=== PATIENT | female | born 1985 | race Caucasian/White ===

== ENCOUNTER 2020-04-05 13:52 | Outpatient (REF) | payer OTHER, SELFPAY | END 2020-04-05 13:53 | disposition home or self-care (01) | LOC: HO.LAB 13:52 | PROVIDERS: Visit Provider Internal Medicine | DX: Z20.828 Contact with and (suspected) exposure to other viral communicable diseases (principal) | CPT/HCPCS: C9803; U0003 ==

== ENCOUNTER 2024-04-29 17:10 | Emergency (ER) | payer OTHER, SELFPAY ==
[2024-04-29 17:13] VITALS: BP 148/101; PULSE 93; RESP 26; TEMP 36.5; O2SAT 100; BMI 32.6
--- NOTE | 2024-04-29 17:15 | ED_ITS ---
HPI - General Adult General Chief complaint: Nausea/Vomiting/Diarrhea Stated complaint: ? preg/nauseau Time Seen by Provider: 04/29/24 17:23 Source: patient, RN notes reviewed and old records reviewed Mode of arrival: ambulatory History of Present Illness ED Provider: Muna Sheriff PA-C HPI narrative: 38-year-old female presenting to ED for hCG level check and complaints of nausea/vomiting x 1 week. States LMP is due in a few days, however was experiencing nausea/ vomiting and breast soreness, contacted her OBGYN and had hCG level drawn on Saturday, 2 days ago, and level was 10. States is due for repeat level tomorrow however nausea worsened to thus came to ED today. Denies abdominal pain, new or worsening back pain, vaginal bleeding, discharge, dysuria/hematuria Related Data Previous Rx's ?Medication ?Instructions ?Recorded ondansetron 4 mg disintegrating 4 mg PO Q8H PRN nausea and 04/29/24 tablet vomiting #10 tabs Allergies Allergy/AdvReac Type Severity Reaction Status Date / Time cyclobenzaprine Allergy Unknown UNKNOWN Verified 04/29/24 17:16 [From FLEXERIL] ethinyl estradiol Allergy Unknown UNKNOWN Verified 04/29/24 17:16 [From NECON 0.5/35 (21)] norethindrone Allergy Unknown UNKNOWN Verified 04/29/24 17:16 [From NECON 0.5/35 (21)] amitriptyline Allergy Vomiting Verified 04/29/24 17:16 UNKNOWN NSAID Allergy Unknown UNKNOWN Uncoded 04/29/24 17:16 Review of Systems 2 Review of Systems: Yes all other systems are reviewed and are negative Constitutional: Constitutional: Reports as per HPI [facility] Past Medical History Attestation statement: The following information was validated with the patient. Source: old records reviewed Social History Social History Advance Directives: No Advance Directives Information Provided: No Physical Exam ED Vital Signs: Vital Signs - 24 hr 04/29/24 17:13 04/29/24 18:27 Temperature 97.7 F 98.0 F Pulse Rate 93 89 Respiratory Rate 26 H 22 H Blood Pressure 148/101 H 144/91 H Pulse Oximetry 100 98 Oxygen Delivery Method Room Air Room Air BMI result Body Mass Index 32.6 Const General: cooperative, healthy appearing and no acute distress Orientation/consciousness: patient oriented x3 Limitations: no limitations HENMT Head: Yes normal to inspection and Yes atraumatic Ears: hearing grossly normal bilaterally General nose exam: Normal external nose present Face and sinus: Yes normal facial exam Eyes General: appearance normal, both eyes and all related structures EOM: EOMs intact bilaterally Neck Neck: Yes normal visual inspection and Yes no meningeal signs Resp Effort & Inspection: normal respiratory effort and no respiratory distress Auscultation: clear to auscultation bilaterally Cardio Rate: regular rate Heart sounds: S1 normal heart sound present and S2 normal heart sound present GI Inspection: Yes normal to inspection Palpation (GI): Soft to palpation, nontender, no guarding and not rigid General: Yes no CVA tenderness Back/Spine/Pelvis Back: no CVA tenderness Skin Rashes: no rashes Wounds: no wounds Neuro General: patient oriented x3, tone normal and no meningeal signs Cranial nerves: Yes CN's II-XII intact bilaterally Gait exam (Neuro): Normal gait present Extrem General: Yes normal to inspection Course Course Course Narrative: RME: 38 yold female presents to the ED for nauseaand believes she is . Patient denies any abdominal pain. llabs ordered. - UA negative. Urine negative - HCG level = 4 >> downtrending from patient's prior labs drawn on 04/27. Recommend patient have repeat hCG in 48 hours to ensure beta quant continues to down trend. Strict return precautions given including development of pain, bleeding, persistent nausea / vomiting, discharge, to return to the ED immediately. She needs to call her OBGYN tomorrow morning. Results discussed with patient including worrisome signs and symptoms and strict return precautions, and when to return to the emergency department. They verbalized understanding and feel safe for discharge at this time. Medications Administered Discontinued Medications Generic Name Dose Route Start Last Admin Trade Name Freq PRN Reason Stop Dose Admin Ondansetron HCl 4 mg 04/29/24 18:13 04/29/24 18:24 Ondansetron Odt 4 Mg Tab.Rapdis TRANSLINGU 04/29/24 18:14 4 mg ONCE ONE Administration Medical Decision Making Medical Decision Making MDM Narrative: 38-year-old female presenting to ED for hCG level check and complaints of nausea/vomiting x 1 week. on exam hypertensive, tachypneic, talking quickly, anxious, abdomen soft and nontender. Concern for early vs gastroenteritis/colitis. Patient without abdominal pain, vaginal bleeding or discharge. low suspicion for ectopic at this time without pain. Unlikely appendicitis /diverticulitis. Rule out UTI. Suspicion for threatened / missed vs possible lab abnormality/false positive. Plan: Labs, UA, hCG, antiemetic, re-evaluate No need for ultrasound at this time Please refer to course for remaining clinical decision making, interpretation of labs/imaging results, and discussions with consultants and/or family members. Differential Diagnosis Differential Diagnoses: The differential diagnosis associated with the presentation includes As above Admission/Observation Consideration of admission/observation: Escalation of care including admission/observation considered Lab Data MDM Lab Attestation statement: I reviewed the patient's lab results. 04/29/24 17:23 04/29/24 17:23 Labs: Lab Results 04/29/24 04/29/24 Range/Units 17:23 17:28 WBC 9.2 (4.8-10.8) X10*3/uL RBC 4.86 (4.20-5.50) X10*6/uL Hgb 14.4 (12.0-16.0) g/dl Hct 42.8 (37.0-47.0) % MCV 88.1 (80.0-98.0) fL MCH 29.6 (27.0-33.0) pg MCHC 33.6 (31.0-35.0) g/dl RDW 13.4 (11.0-16.0) % Plt Count 287 (160-400) X10*3/uL MPV 10.3 (9.4-12.3) fL Immature Gran % (Auto) 0.2 (0.0-0.4) % Neut % (Auto) 62.7 (45-73) % Lymph % (Auto) 29.2 (20-40) % [place] % (Auto) 6.4 (2-11) % Eos % (Auto) 1.2 (0-4) % Baso % (Auto) 0.3 (0-2) % Lymph # (Auto) 2.7 (1.2-4.9) X10*3/uL [place] # (Auto) 0.6 (0.1-1.2) X10*3/uL Eos # (Auto) 0.1 (0.0-0.4) X10*3/uL Baso # (Auto) 0.0 (0.0-0.2) X10*3/uL Abs Immat Gran (auto) 0.02 (0.00-0.03) X10*3/uL Absolute Neuts (auto) 5.7 (2.0-8.3) x10*3/uL Absolute Nucleated RBC 0.000 (0.0-0.012) X10*3/uL Nucleated RBC % (auto) 0.0 (0.0-0.2) /100WBC PT 11.1 (10.9-12.4) SEC INR 1.0 (0.9-1.1) APTT 28.5 (26.0-36.8) SEC Sodium 141 (135-145) mmol/L Potassium 3.7 (3.3-5.1) mmol/L Chloride 107 (96-108) mmol/L Carbon Dioxide 24 (22-29) mmol/L Anion Gap 14 (12-20) BUN 12 (9-16) mg/dL Creatinine 0.76 (0.5-1.4) mg/dL Estim Creat Clear Calc 105.6 Estimated GFR > 60 Random Glucose 118 H (60-115) mg/dL Calcium 9.4 (8.4-10.2) mg/dL Magnesium 2.0 (1.6-2.6) mg/dL Total Bilirubin 0.4 (0.0-1.0) mg/dL AST 16 (5-31) U/L ALT 11 (0-31) U/L Alkaline Phosphatase 64 (39-117) U/L Total Protein 7.3 (6.5-8.0) g/dL Albumin 4.3 (3.5-5.0) g/dL Lipase 12 (8-78) U/L Beta HCG, Quant 4 mIU/mL Urine Color Yellow Urine Appearance Clear Urine pH 6.0 (5.0-9.0) Ur Specific [place] >= 1.030 H (1.005-1.025) Urine Protein Negative (Neg-Trace) mg/dL Urine Glucose (UA) Negative (Negative) mg/dL Urine Ketones Trace (Negative) mg/dL Urine Blood Negative (Negative) Urine Nitrite Negative (Negative) Ur Leukocyte Esterase Negative (Negative) Urine Test NEGATIVE (NEGATIVE) Radiology Impression Discussion of test interpretation with radiology: I have reviewed the radiologist's reading. External Record Review External record reviewed: Inpatient record, Office record, Outpatient record, Prior outpatient labs, Prior outpatient radiology, Primary care record and Outside ED record Tests considered The following testing was considered but not selected: As above Chronic Conditions Patient?s care impacted by: Other Social Determinants Patient?s care significantly limited by Social Determinants of Health including: Low income and Other Social Determinant of Health Discharge Plan Discharge Clinical Impression: Nausea, Inappropriate change in quantitative hCG in early Patient Disposition: Home, Self-Care Instructions: Acute Nausea and Vomiting (ED) Additional Instructions: Zofran is for nausea. Take as needed for nausea and vomiting Your hCG today was 4, this is down trending from her prior blood work. this could be the result of a false positive hCG, or evidence of a nonviable YOU NEED TO HAVE REPEAT HCG, BLOODWORK, IN 48 HOURS. CALL YOUR OBGYN 1ST THING TOMORROW MORNING TO MAKE AWARE OF RESULTS IF YOU DEVELOP ANY ABDOMINAL PAIN, LOW BACK PAIN, VAGINAL BLEEDING, VAGINAL DISCHARGE, PERSISTENT NAUSEA / VOMITING ANY YOU ARE UNABLE TO EAT OR DRINK RETURN TO THE EMERGENCY DEPARTMENT Prescriptions: New ondansetron 4 mg tablet,disintegrating 4 mg PO Q8H PRN (Reason: nausea and vomiting) Qty: 10 0RF Referrals: [facility] [place] [facility] [Provider Group] - 2 days (for repeat labs) Lucho Panchal MD [Primary Care Provider] - 2 days Interventions: ED Discharge Assessment Last Done: 04/29/24 18:27 Discharge Date/Time: 04/29/24 18:30 Print Language: Latvian
[2024-04-29 17:32] LABS: MANUAL DIFF FLAG NO
[2024-04-29 17:41] LABS: Appearance Urine Clear; Color Urine Yellow; Glucose Urine UA Negative (Negative); Leukocyte Esterase Urine Negative (Negative); Nitrite Urine Negative (Negative); Specific Gravity - Urine >= 1.030 (1.005-1.025); Urine Blood Negative (Negative); Urine Ketones Trace mg/dL (Negative); Urine Protein Negative (Neg-Trace)
[2024-04-29 17:43] LABS: UPreg QC Valid YES; Urine Pregnancy NEGATIVE (NEGATIVE)
--- OUTSIDE RECORDS SUMMARY | 2024-04-29 17:49 | XMS_ITS | Data Portability ---
Author Organization [employer] [employer] Address [address] [place] [address] Care Team Providers Care Machine Tech Name Role Phone HIM CCA OTHER FRANKLIN ROMO Primary Care Provider [phone] Assessment Encounter Date Assessment Date Assessment LastModified by Organization Details LastModified Time 01/23/2024 01/23/2024 I provided real -time medical direction via phone for this encounter and was available for additional phone-based assistance as needed. I have reviewed and agree with the Assessment and Plan as documented by the Ag[employer] Test Lead. Patient given the opportunity to ask questions. Our service contacted for an assessment of: Migraine headache As per above, patient with a history of migraine headaches. Follows with Neurology his notes were reviewed in the portal. Patient is due for another round of Botox that starts next month. Patient without any unusual signs or symptoms a migraine headache and states usual pain. Per gas appliance adjuster on the scene, vital signs stable patient is afebrile Impression: Migraine headache Plan: Reglan 10 mg p.o. x1, Benadryl 25 mg p.o. x1 Toradol 30 mg IM x1. Allergies: Reviewed PCP f/u: We discussed the diagnostic uncertainty of home visits and the risk associated with this. In this case, the patient and I felt this to be an acceptable and reasonable amount of risk given the benefit of avoiding an ED visit. We discussed the need to seek care urgently/emergen tly in the setting of any new or worsening serious symptoms, particularly fever chills [email or web address] Not available 01/23/2024 20:22:19 03/09/2024 03/09/2024 I provided real -time medical direction via phone for this encounter, and was available for additional phone based assistance as needed. I have reviewed and agree with the Assessment and Plan as documented by the Agile Test Lead. The patient given the opportunity to ask questions. Advised if develops CP/severe SOB/turning blue/uncontrolle d n/v/d /AMS/ syncope/ hi fever unresponsive to APAP to call 911- she verbalized understanding of instructions to the medic [email or web address] Not available 03/09/2024 13:51:54 03/21/2024 03/21/2024 I have reviewed and agree with the assessment and plan as documented by the gas appliance adjuster. I provided real time medical direction for this encounter and was immediately available to provide additional phone based assistance as needed. History as noted by gas appliance adjuster. Pt with history of asthma, reports the for the last several weeks she has had congestion and productive cough with white/yellow sputum. She has noted CAPONE but no SOB at rest or orthopnea. No CP or fevers. Pt seen by [facility] on 03/09 for similar symptoms. Covid and Flu negative at that time and pt was prescribed albuterol MDI to use with her home albuterol nebs, as well as guaifenesen. Pt reports that the MDI and nebs have helped her breathing and wheezing but she continues to have a productive cough. Pt notes that she has had good effect on similar prolonged symptoms in the past when she was prescribed prednisone. On exam, pt appears well, vitals and O2 sat normal. Lungs clear (pt had given herself a neb treatment just prior to medic arrival). Impression: Pt with history of asthma, now with several weeks of productive cough and CAPONE c/w bronchitis. Pt is medicated with azithromycin 500mg and prednisone 40mg po and she is prescribed 4 more days of azithromycin 250mg qd and prednisone 40mg qd. She will continue to use her MDI and nebs prn and is instructed to f/u with [facility] or her primary care team if her symptoms do not improve after completing the meds. Pt instructed to seek medical attention right away with any worsening or new symptoms, which are reviewed with her. [email or web address] Not available 03/21/2024 09:16:29 Plan of Treatment Reminders Order Date Submit Date Provider Last Modified By Organization Details Last Modified Time Details Appointments None recorded. Lab rapid SARS CoV 2 Ag, QL IA, respiratory specimen 2023 024 [email or web address] 0 Main - [facility], [address] [place] [address], [phone], 13:49:39 rapid flu (A+B) [email or web address] [facility], [address] [place] [address], [phone], 4 13:49:39 Referral None recorded. Procedures None recorded. Surgeries None recorded. Imaging None recorded. Medication Orders ketorolac 30 mg/mL injection solution 2023 024 [email or web address] Not available 4 20:21:11 Benadryl 25 mg capsule 2023 024 [email or web address] Not available 4 20:21:11 Reglan 10 mg tablet 2023 024 [email or web address] [id number] Not available 4 20:21:11 diphenhydra mine 50 mg/mL injection solution 2023 024 [email or web address] Not available 4 15:48:46 ketorolac 60 mg/2 mL intramuscul ar cartridge 2023 024 [email or web address] Not available 4 15:48:46 metoclopram rishabh 5 mg/mL injection solution 2023 024 [email or web address] Not available 4 15:48:46 guaifenesin 400 mg tablet 2023 024 [facility], [address] [place] [address], [id number], 4 13:49:52 albuterol sulfate HFA 90 mcg/actuati on aerosol inhaler 2023 024 [facility], [address] [place] [address], [id number], 4 13:49:46 azithromyci n 250 mg tablet 2023 [facility], [address] [place] [address], [address], 4 09:09:30 prednisone 20 mg tablet 2023 024 [facility], [address] [place], [address], 4 09:09:31 azithromyci n 250 mg tablet 2023 024 [facility] [address], [address] [place], [address], 4 09:09:22 prednisone 20 mg tablet 2023 024 [facility], [address] [place], [address], 4 09:09:22 Patient TargetsNo targets recorded. Patient InstructionsNo instructions recorded. Reason for Referral None Reported. Results Created Date Observation Date Name Description Value Unit Range Abnormal Flag Note LastModifiedBy Organization Detail LastModifiedTime 03/09/20 24 03/09/2024 rapid flu (A+B) Flu negati ve Not Available [facility] [address] [place] [address], [phone], 03/09/2024 13:47:23 03/09/20 24 03/09/2024 rapid SARS CoV 2 Ag, QL IA, respi rator y speci men rapid SARS CoV 2 Ag, QL IA, respiratory specimen negati ve Not Available [facility] [address] [place] [address], [phone], 03/09/2024 13:47:22 Result Notes None recorded. Medical Equipment None Reported. Allergies Allergen ID Allergen Name Allergen Category Reaction Reaction Severity Criticality Documentation Date Start Date Code Code System Note Provider Name and Address Organization Details Recorded Time 4795 amitripty line medicatio n Not available Not available Not available 08/02/2023 704 RxNorm Not Available [facility] - production 09:39:11 4796 cyclobenz aprine hydrochlo ride medicatio n Not available Not available Not available 08/02/2023 78796 RxNorm Not Available [facility] - production 4 09:39:11 4797 sulindac medicatio n Not available Not available Not available 08/02/2023 51979 RxNorm has psych iatri c side effec ts Pushpa Loyd MD [address] [facility],[address], [place], [phone], [employer] 4 11:05:36 4798 Necon (21) medicatio n Not available Not available Not available 08/02/2023 Pushpa Loyd MD [address], [place], [phone], [facility] 4 11:05:05 Medications Name Sig Start Date Stop Date Status Note LastModified by Organization Details LastModified Time mucus [id number] g tab TAKE 1 TO 2 TABLETS BY MOUTH TWICE DAILY active Not Available Not Available No t Available eq pain reliever 500mg tab TAKE 1 TABLET BY MOUTH EVERY 6 HOURS NEEDED FOR PAIN FOR UP TO 30 DAYS active Not Available Not Available No t Available pain relievr tab 500mg active Not Available Not Available No t Available medroxypro gesterone 10 mg tablet TAKE 1 TABLET BY MOUTH TWICE DAILY FOR 10 DAYS active Not Available Not Available No t Available methocarba mol 500 mg tablet TAKE 1 TABLET BY MOUTH 4 TIMES DAILY FOR 10 DAYS active Not Available Not Available No t Available buspirone 5 mg tablet TAKE 1 TABLET BY MOUTH TWICE DAILY active Not Available Not Available No t Available lamotrigin e 150 mg tablet TAKE 1 TABLET BY MOUTH ONCE DAILY active Not Available Not Available No t Available prednisone 10 mg tablet TAKE 6 TABLETS BY MOUTH ONCE DAILY FOR 2 DAYS, THEN 5 TABLETS ONCE DAILY FOR 2 DAYS, THEN 4 TABLETS ONCE DAILY FOR 2 DAYS, THEN 3 TABLETS ONCE DAILY FOR 2 DAYS, THEN 2 TABLETS ONCE DAILY FOR 2 DAYS, AND THEN TAKE ONE TABLET DAILY FOR 2 DAYS active Not Available Not Available No t Available venlafaxin e ER 75 mg capsule,ex tended release 24 hr TAKE 1 CAPSULE BY MOUTH ONCE DAILY IN THE MORNING active Not Available Not Available No t Available doxycyclin e hyclate 100 mg capsule active Not Available Not Available Not Available metoclopra mide 5 mg/mL injection solution Take 10 mg by injection route. 2023 active slow iv push s/p benadryl Not Available Not Available Not Available lamotrigin e 200 mg tablet TAKE 1 TABLET BY MOUTH ONCE DAILY active Not Available Not Available No t Available albuterol sulfate 2.5 mg/3 mL (0.083 %) solution for nebulizati on USE 1 VIAL IN NEBULIZER EVERY 4 HOURS NEEDED FOR WHEEZING, SHORTNESS OF BREATH OR COUGH active Not Available Not Available No t Available trazodone 50 mg tablet TAKE 1/2 (ONE-HALF ) TABLET BY MOUTH THREE TIMES DAILY NEEDED FOR ANXIETY active Not Available Not Available No t Available azithromyc in 250 mg tablet Take 500 mg by oral route. active Not Available Not Available No t Available ibuprofen 800 mg tablet TAKE 1 TABLET BY MOUTH EVERY 8 HOURS NEEDED FOR PAIN active Not Available Not Available No t Available riboflavin (vitamin B2) 100 mg tablet TAKE 4 TABLETS (400 MG) BY MOUTH ONCE DAILY active Not Available Not Available No t Available atenolol 100 mg tablet TAKE 1 TABLET BY MOUTH ONCE DAILY active Not Available Not Available No t Available prochlorpe razine maleate 5 mg tablet TAKE 1 TABLET BY MOUTH THREE TIMES DAILY NEEDED FOR NAUSEA AND VOMITING active Not Available Not Available No t Available meloxicam 15 mg tablet TAKE 1 TABLET BY MOUTH ONCE DAILY FOR 10 DAYS active Not Available Not Available No t Available prednisone 20 mg tablet Take 2 tablets by oral route. active Not Available Not Available No t Available clonazepam 0.5 mg tablet TAKE 1 TABLET BY MOUTH TWICE DAILY NEEDED FOR PANIC active Not Available Not Available No t Available rizatripta n 10 mg tablet TAKE ONE TABLET (10 MG TOTAL) BY MOUTH NEEDED FOR MIGRAINE. MAY REPEAT IN 2 HOUR IF NEEDED. MAX 2 PER 24 HOURS MAX 10 PER MONTH active Not Available Not Available No t Available gabapentin 400 mg capsule TAKE 1 CAPSULE BY MOUTH AT BEDTIME active Not Available Not Available No t Available clonazepam 1 mg tablet TAKE 1 TABLET BY MOUTH ONCE DAILY NEEDED active Not Available Not Available No t Available atenolol 25 mg tablet START WITH TAKING ONE TABLET BY MOUTH INCREASIN G A PILL EVERY WEEK UNTIL 100 MG active Not Available Not Available No t Available venlafaxin e ER 150 mg capsule,ex tended release 24 hr TAKE 1 CAPSULE BY MOUTH ONCE DAILY IN THE MORNING active Not Available Not Available No t Available sumatripta n 50 mg tablet TAKE 1 TABLET BY MOUTH EVERY 2 HOURS NEEDED FOR MIGRAINE. DO NOT EXCEED MORE THAN 2 TABLETS PER DAY active Not Available Not Available No t Available cyanocobal fish (vit B-12) 1,000 mcg tablet TAKE 2 TABLETS BY MOUTH ONCE DAILY active Not Available Not Available No t Available hydroxyzin e HCl 50 mg tablet TAKE 1 TABLET BY MOUTH THREE TIMES DAILY NEEDED active Not Available Not Available No t Available quetiapine 100 mg tablet TAKE 2 TABLETS BY MOUTH AT BEDTIME NEEDED active Not Available Not Available No t Available ondansetro n 8 mg disintegra ting tablet active Not Available Not Available Not Available lamotrigin e 25 mg tablet TAKE 1 TABLET BY MOUTH ONCE DAILY FOR 15 DAYS active Not Available Not Available No t Available amoxicilli n 875 mg tablet active Not Available Not Available Not Available diphenhydr amine 50 mg/mL injection solution Take 50 mg by injection route. 2023 active slow ivp Not Available Not Available Not Avai lable magnesium oxide 400 mg (241.3 mg magnesium) tablet TAKE 1 TABLET BY MOUTH ONCE DAILY active Not Available Not Available No t Available metoclopra mide 5 mg tablet TAKE 1 TABLET BY MOUTH 4 TIMES DAILY NEEDED FOR HEADACHE FOR 7 DAYS active Not Available Not Available No t Available methocarba mol 750 mg tablet TAKE 1 TABLET BY MOUTH THREE TIMES DAILY FOR 10 DAYS active Not Available Not Available No t Available desonide 0.05 % topical ointment APPLY SPARINGLY TO HAND ONCE DAILY. STOP AFTER 1 WEEK, AND MAY REPEAT FOR ANOTHER WEEK active Not Available Not Available No t Available meclizine 25 mg tablet active Not Available Not Available Not Available baclofen 10 mg tablet TAKE 1/2 (ONE-HALF ) TABLET BY MOUTH THREE TIMES DAILY FOR 14 DAYS active Not Available Not Available No t Available buspirone 10 mg tablet TAKE 1 TABLET BY MOUTH TWICE DAILY active Not Available Not Available No t Available prednisone 50 mg tablet active Not Available Not Available Not Available triamcinol one acetonide 0.025 % topical ointment APPLY OINTMENT TOPICALLY TO HANDS TWICE DAILY active Not Available Not Available No t Available omeprazole 20 mg capsule,de layed release TAKE 1 CAPSULE BY MOUTH ONCE DAILY active Not Available Not Available No t Available Lupron Depot 3.75 mg intramuscu lar syringe kit INJECT CONTENTS OF 1 KIT INTRAMUSC ULARLY ONCE EVERY MONTH active Not Available Not Available No t Available pseudoephe drine 30 mg tablet TAKE 2 TABLETS BY MOUTH EVERY 6 HOURS NEEDED active Not Available Not Available No t Available diclofenac sodium 50 mg tablet,del ayed release TAKE 1 TABLET BY MOUTH TWICE DAILY FOR 10 DAYS active Not Available Not Available No t Available sodium chloride 0.9 % intravenou s solution Inject 1000 mL by intraveno us route. 2023 active Not Available Not Available Not Avai lable ergocalcif jacqueline (vitamin D2) 1,250 mcg (50,000 unit) capsule TAKE 1 CAPSULE BY MOUTH ONCE A WEEK active Not Available Not Available No t Available nystatin 100,000 unit/gram topical powder APPLY A SMALL AMOUNT TOPICALLY TO AFFECTED AREA TWICE DAILY active Not Available Not Available No t Available ibuprofen 600 mg tablet TAKE 1 TABLET BY MOUTH EVERY 6 HOURS NEEDED FOR PAIN FOR UP TO 10 DAYS active Not Available Not Available No t Available zolpidem 10 mg tablet TAKE 1 TABLET BY MOUTH AT BEDTIME active Not Available Not Available No t Available methylpred nisolone 4 mg tablets in a dose pack TAKE BY MOUTH DIRECTED ON INSIDE OF PACKAGE active Not Available Not Available No t Available albuterol sulfate HFA 90 mcg/actuat ion aerosol inhaler INHALE 2 PUFFS BY MOUTH EVERY 4 HOURS NEEDED active Not Available Not Available No t Available ketoconazo le 2 % topical cream APPLY A SMALL AMOUNT OF CREAM TOPICALLY TO AFFECTED AREAS TWICE DAILY NEEDED FOR ITCHING active Not Available Not Available No t Available ondansetro n 4 mg disintegra ting tablet DISSOLVE 1 TABLET IN MOUTH EVERY 8 HOURS NEEDED FOR NAUSEA active Not Available Not Available No t Available fluticason e propionate 50 mcg/actuat ion nasal spray,susp ension USE 2 SPRAY(S) IN EACH NOSTRIL ONCE DAILY active Not Available Not Available No t Available doxycyclin e hyclate 100 mg tablet active Not Available Not Available Not Available lamotrigin e 100 mg tablet TAKE 1 TABLET BY MOUTH ONCE DAILY active Not Available Not Available No t Available fluticason e propionate 110 mcg/actuat ion HFA aerosol inhaler active Not Available Not Available Not Available naproxen 500 mg tablet active Not Available Not Available Not Available metoclopra mide 10 mg tablet TAKE 1 TABLET BY MOUTH 4 TIMES DAILY FOR 7 DAYS active Not Available Not Available No t Available amoxicilli n 875 mg-potassi um clavulanat e 125 mg tablet active Not Available Not Available Not Available guaifenesi n 400 mg tablet 1-2 tablets twice a day as needed 11/04/ 2024 active Not Available Not Available Not Avai lable Pain Reliever (acetamino phen) 500 mg tablet TAKE 1 TABLET BY MOUTH EVERY 6 HOURS NEEDED FOR PAIN FOR UP TO 30 DAYS active Not Available Not Available No t Available quetiapine 50 mg tablet TAKE 1 TABLET BY MOUTH AT BEDTIME NEEDED active Not Available Not Available No t Available Allergy Relief (cetirizin e) 10 mg tablet TAKE 1 TABLET BY MOUTH ONCE DAILY active Not Available Not Available No t Available cholecalci ferol (vitamin D3) 50 mcg (2,000 unit) tablet active Not Available Not Available Not Available ketorolac 30 mg/mL injection solution Inject 15 mg. 2023 active Not Available Not Available Not Avai lable tranexamic acid 650 mg tablet TAKE 2 TABLETS BY MOUTH THREE TIMES DAILY active Not Available Not Available No t Available Emgality 120 mg/mL subcutaneo us syringe INJECT 1 SYRINGE SUBCUTANE OUSLY ONCE EVERY MONTH active Not Available Not Available No t Available Zafemy 150 mcg-35 mcg/24 hr transderma l patch APPLY 1 PATCH TOPICALLY ONCE A WEEK active Not Available Not Available No t Available Qulipta 60 mg tablet TAKE 1 TABLET BY MOUTH ONCE DAILY active Not Available Not Available No t Available Vitals Date Recorded Body temperature Oxygen saturation Oxygen saturation in Arterial blood by Pulse oximetry Heart rate Respiratory rate Body weight Systolic blood pressure Diastolic blood pressure Provider Name and Address Organization Details Last Updated DateTime 4 99 [degF] 99 % 99 % 65 /min 18 /min 97167.4 g 117 mm[Hg] 81 mm[Hg] Not Available [employer] 4 16:37:27 Date Recorded Oxygen saturation Oxygen saturation in Arterial blood by Pulse oximetry Body temperature Respiratory rate Heart rate Systolic blood pressure Diastolic blood pressure Provider Name and Address Organization Details Last Updated DateTime 4 99 % 99 % 98.7 [degF] 18 /min 67 /min 128 mm[Hg] 82 mm[Hg] Not Available [employer] 4 20:03:34 Date Recorded Respiratory rate Heart rate Oxygen saturation Oxygen saturation in Arterial blood by Pulse oximetry Body temperature Systolic blood pressure Diastolic blood pressure Provider Name and Address Organization Details Last Updated DateTime 4 16 /min 94 /min 98 % 98 % 98.2 [degF] 135 mm[Hg] 85 mm[Hg] Not Available [facility] 4 15:34:16 Date Recorded Heart rate Respiratory rate Body temperature Oxygen saturation Oxygen saturation in Arterial blood by Pulse oximetry Systolic blood pressure Diastolic blood pressure Provider Name and Address Organization Details Last Updated DateTime 4 72 /min 16 /min 97.7 [degF] 100 % 100 % 138 mm[Hg] 89 mm[Hg] Not Available [facility] 4 13:20:29 Date Recorded Body weight Body temperature Heart rate Respiratory rate Oxygen saturation Oxygen saturation in Arterial blood by Pulse oximetry Body height Systolic blood pressure Diastolic blood pressure Provider Name and Address Organization Details Last Updated DateTime 4 00007.4 8 g 97.7 [degF] 90 /min 16 /min 96 % 96 % 162.56 cm 124 mm[Hg] 80 mm[Hg] Not Available [facility] 4 09:02:57 Social History None recorded. Functional Status None recorded. Mental Status None recorded. Family History Nothing Reported. Medical History No medical history recorded. Gynecological HistoryNo gynecological history recorded. Obstetrics History GPAL:G 0 P 0 0 0 0 Past Encounters Encounter ID Performer Location Encounter Start Date Encounter Closed Date Diagnosis/Indication Diagnosis SNOMED-CT Code Diagnosis ICD10 Code [id number] Pushpa Loyd MD Main - [facility] [address] [place] [phone] 08/02/2023 11:03:59 08/05/2023 18:20:06 Migraine 70392908 G43.909 [id number] Ha Brand MD Main - [facility] [address] [place] [phone] 08/04/2023 20:53:19 08/06/2023 11:09:56 Thigh pain 94328924 M79.659 [id number] Gio Thornton MD Main - [facility] [address] [place] [phone] 08/16/2023 18:41:23 08/19/2023 18:21:09 Migraine [id number] G43.909 [id number] Annamaria Catalan MD Main - [facility] [address] [place] [id number] 08/28/2023 21:09:20 08/28/2023 22:09:31 Headache 15465351 R51.9 [id number] Darion Vega MD Main - [facility] [address] [place], [place] [address] 0 09/01/2023 17:23:14 09/02/2023 09:28:05 Dyspnea 268265756 R06.00 [id number] Benitez Graves MD Main - [facility] [address] [place] [address] 0 09/19/2023 16:37:25 09/19/2023 22:16:13 Migraine 15042086 G43.909 [id number] Eda Hernandez MD Main - [facility] [address] [place] [address] 0 01/23/2024 20:03:32 01/23/2024 21:11:54 Headache 28315008 R51.9 [id number] Pushpa Loyd MD Main - [facility] [address] [place] [address] 0 02/04/2024 15:34:12 02/04/2024 21:57:18 Migraine 60602760 G43.909 Abdominal pain 92286227 R10.9 [id number] Pushpa Loyd MD Main - [facility] [address] [place] [address] 0 03/09/2024 13:20:26 03/09/2024 17:54:17 Viral upper respiratory tract infection [id number] J06.9 [id number] Ruiz Shearer MD Main - [facility] [address] [place] [address] 0 03/21/2024 09:02:54 03/21/2024 13:30:32 Acute bronchitis 94651619 J20.9 Health Concerns Section Related Observation LastModified by Organization Detai ls LastModified Time None Recorded Concern Status LastModified by Organization Details LastModified Time None Recorded Advance Directives Directive None Recorded Payers Encounter Date Sequence Insurance Name Policy Number Policy Sood Covered Member ID Sood Member ID Guarantor Name 09/19/2023 1 [facility] [employer] - DOS ON OR AFTER 2022 - DUAL ELIGIBLE - LONGTERM OPTIONS AND ONE CARE (MEDICARE REPLACEMENT/ADV ANTAGE - HMO) Antonia Hardin [id number] Antonia Hardin 01/23/2024 1 [facility] - DOS ON OR AFTER 2022 - DUAL ELIGIBLE - LONGTERM OPTIONS AND ONE CARE (MEDICARE REPLACEMENT/ADV ANTAGE - HMO) Antonia Hardin [id number] Antonia Hardin 02/04/2024 1 [facility] - DOS ON OR AFTER 2022 - DUAL ELIGIBLE - LONGTERM OPTIONS AND ONE CARE (MEDICARE REPLACEMENT/ADV ANTAGE - HMO) Antonia Hardin [id number] Antonia Hardin 03/09/2024 1 [facility] - DOS ON OR AFTER 2022 - DUAL ELIGIBLE - LONGTERM OPTIONS AND ONE CARE (MEDICARE REPLACEMENT/ADV ANTAGE - HMO) Antonia Hardin [id number] Antonia Hardin 03/21/2024 1 [facility] [employer] - DOS ON OR AFTER 2022 - DUAL ELIGIBLE - LONGTERM OPTIONS AND ONE CARE (MEDICARE REPLACEMENT/ADV ANTAGE - HMO) Antonia Hardin [id number] Antonia Hardin Notes Date Note Type Note Provider Name and Address Organization Details Recorded Time 09/19/2023 text/html [facility] Nurse Triage Notes (Leonora Ogden): Chief Complaints: Headache PMH: Severe Persistent Mental Illness (SPMI) Allergies: Unknown Comments: RN verified name//address. Patient requesting visit for Migraine that started 2 days ago. Neurologist advised member to go to ED. States all they will do is give her a Migraine cocktail. Requesting [facility] visit for evaluation. Reports aura is numbness and slight pain to fingers, toes and right side of face. Speech clear. Taking prescribed medications with no improvement. Took Imitrex twice the day before yesterday and Excedrin this AM. On new medication for Qulipta which she took yesterday. Benitez Graves MD [address] [place] [address],[address], [place], [phone], [facility] 09/19/2023 16:42:11 01/23/2024 text/html HPI: Need migraine cocktail instead done it before?? ....................... ....................... ....................... ....................... ....................... ....................... ... [facility] Nurse Triage Notes (Khurram Law): Chief Complaints: Headache PMH: Severe Persistent Mental Illness (SPMI) Other Allergies: Amitriptyline, Flexeril, Necon, Sulindac Comments: Sales Center Associate verified the member's name//address and phone number. Mbr reports migraine headache since Saturday, reports she took her back up migraine medication today without any relief in symptoms. Mbr denies N/V. Mbr requesting migraine cocktail that she states has worked well for her in the past. Education provided on the response time and the member was advised to monitor reported s/s and seek emergency treatment if needed -PAMELA Mccarty MD [address] [place] [address],[address], [place], [address] [employer] 01/23/2024 20:22:51 02/04/2024 text/html HPI: Migraine attack?? ....................... ....................... ....................... ....................... ....................... ....................... ... [facility] Nurse Triage Notes (Johanny Benitez): Reason For Request: Pain Chief Complaints: Headache PMH: Severe Persistent Mental Illness (SPMI) Allergies: Unknown Comments: Sales Center Associate verified the member's name//address and phone number. Member is a 38 yr old female a/o3 PMH >migraine Allergies >Pt was seen on 01/22. She was seen by neuro, changed her meds, but is still on daily of qulipta , but was given rizatriptan she took 2 yesterday and she is not suppose to take more then 10 a month. botox is due in 2 weeks. She is suppose to see a migraine specialist in March . She feels she needs the migraine cocktail. She has sensitivity to light / pain Education provided on the response time and the member was advised to monitor reported s/s and seek emergency treatment if needed [employer] Summary-note closed prior to medic summary crossing over into [place] so I am entering it here- SEGMD:Summary- Spencer Gutierrez to evaluate 38-year-old female with migraine symptoms. Upon arrival, patient is alert and oriented times four, ambulating on her own without difficulty, and didn? t no acute distress Patient has indicated that she has had migraine headaches times two days. She normally receives Botox injections, however, is not due for her next injection for another two weeks. Patient states that she has previously received Reglan, Benadryl, and Toradol, when she has had migraine flareups. Vital signs and physical exam unremarkable [facility] Dr. Graves was contacted, and ordered IM Benadryl, Reglan, and Toradol. 5 rights were confirmed. 10mg IM Reglan, 30mg IM Toradol and 50mg IM Benadryl was administered as directed. Patient was advised to follow up with her PCP and seek evaluation at the ER if symptoms do not improve or worsen.Services ProvidedMedication (IM)DispositionFulfille [facility]?No Pushpa Loyd MD [address] [facility],[address], [place], [address], [employer] 02/05/2024 11:28:43 03/09/2024 text/html [facility] Nurse Triage Notes (Johanny Benitez): Reason For Request: SOB Chief Complaints: Breathing problems PMH: Severe Persistent Mental Illness (SPMI), Anxiety Disorder, Migraine Comments: Sales Center Associate verified the member's name//address and phone number. Member is a 38 yr old female She went to do a breathing treatment , but was unable to complete it as she has a missing piece to the neb. She feels that she is unwell. She feels she is getting bronchitis. She does not have a diagnosis of Asthma but is being treated as such. She has the breathing tightness, nasal congestionEducation provided on the response time and the member was advised to monitor reported s/s and seek emergency treatment if needed [employer] Organization Information for Adriano Leija Business Legal Name: [facility] Transportation Address: [address] [place] [address], [place] [address], Aeronautical Design Engineer: Paras Wild MD [facility] No.: [id number] [employer] Test Lead POC Test Results from Adriano Leija Rapid COVID antigen (12:44:24) COVID: - Rapid influenza antigen (12:44:25) Flu: - ....................... ....................... ....................... ....................... ....................... ....................... ... [employer] Test Lead Note From Adriano Leija: This 38-year-old female with history including but not limited to anxiety/depression, asthma, migraine requested a visit to obtain replacement parts for nebulizer machine, to obtain a refill on her albuterol inhaler and a prescription for Mucinex. She tells me she's had ongoing sinus congestion for a couple weeks and a dry cough for a couple days which she believes is related to her seasonal allergies. She uses albuterol nebulizers as needed, albuterol inhaler as needed, fluticasone daily and cetirizine daily. She denies any chest pain, shortness of breath, dyspnea on exertion, headache, dizziness, fevers, nausea, vomiting, diarrhea.She presents awake and alert, in no acute distress, speaking full sentences. All vital signs are stable, oxygen saturation 100% and she is afebrile. Nonfocal Neuro exam. Normal gait. Lungs are clear throughout auscultation. Benign abdominal exam. No lower extremity edema. Rapid COVID and flu negative. [facility] contacted and will send prescriptions to pharmacy. I was able to provide the replacement parts necessary for nebulizer machine. I provided education on prescriptions and additional supportive care. I instructed her to follow up with her primary care physician if symptoms persist and to present to the emergency department for new or worsening severe symptoms such as chest pain, shortness of breath, dyspnea on exertion, high fever, altered mental status, fevers, persistent nausea, vomiting or diarrhea. Patient was given the opportunity to ask questions and she is agreeable to this plan. ....................... ....................... ....................... ....................... ....................... ....................... ... [facility] Consulted: Pushpa Loyd ....................... ....................... ....................... ....................... ....................... ....................... ... Disposition: Fulfilled Pushpa Loyd MD [address] [facility],[address], [place], [address], [employer] 03/09/2024 13:52:37 03/21/2024 text/html This was a super vised home visit with gas appliance adjuster Adriano Leija. [facility] Nurse Triage Notes (Alok Hanley): Chief Complaints: Breathing problems, Cough, Common cold symptoms PMH: Severe Persistent Mental Illness (SPMI), Anxiety Disorder, Migraine Comments: Sales Center Associate verified the Pt.'s name//address and phone number. Education provided on the response time and the Pt. was advised to monitor reported s/s and seek emergency treatment if needed. Pt reports feeling unwell with a cough, cold and congestion - Increased use of Inhaler - Denies sore throat - Denies SOB - Denies fever - S/S for 3 days. ....................... ....................... ....................... ....................... ....................... ....................... ... [employer] Test Lead Note From Adriano Leija: This 38-year-old female with a history including but not limited to depression, anxiety, migraines, asthma requested a visit today to address ongoing dyspnea on exertion and cough producing yellow/white sputum. I visited this patient on 03/09/24 for the same complaint, we refilled her albuterol MDI, fixed her nebulizer machine and prescribed Mucinex. Patient states no improvement in symptoms since the fourth. Patient denies any shortness of breath at rest, chest pain, fevers, nausea, vomiting, diarrhea. She tells me that she use her nebulizer machine just a few minutes prior to my arrival.She presents awake and alert, and no acute distress, speaking full sentences. All vital signs are stable and she is afebrile. Nonfocal neurological exam. Normal gait. No sinus tenderness. Normal oropharynx exam. Lungs are clear throughout auscultation. Abdomen is soft, nontender, nondistended. No lower extremity edema.I treated this patient with azithromycin 500 mg and prednisone 40 mg. I provided education on her prescriptions and additional supportive care. I recommend she continue to use her inhalers nebulizer machine as prescribed. I instructed her to follow up with her primary care physician next week and present to the emergency department for any new or worsening severe symptoms such as chest pain, severe shortness of breath, high fever, altered mental status. The patient was given the opportunity to ask questions and is agreeable to this plan. ....................... ....................... ....................... ....................... ....................... ....................... ... [facility] Consulted: Ruiz Shearer ....................... ....................... ....................... ....................... ....................... ....................... ... Disposition: Fulfilled Ruiz Shearer MD [address] [facility],[address], [place], [address], [employer] 03/21/2024 09:32:30 OBGyn Episode No OBEpisode recorded.
--- OUTSIDE RECORDS SUMMARY | 2024-04-29 17:49 | XMS_ITS | Continuity of Care Document ---
Author Organization [facility] Address [address] [place] [address]- Care Team Providers Care Broodmare Barn Groom Name Role Phone Lucho Panchal MD [id number] Date[facility]s): [facility]/29/24 - 04/08/[address] [address] Attending Physician: Lucho Panchal MD Admitting Physician: Lucho Panchal MD Referring Physician: Lucho Panchal MD Encounter Type: Pre-OutPatient One Time Allergies, Adverse Reactions, Alerts Substance Criticality Severity Reaction Reaction Severity Status sulindac Unable to assess criticality Persistent Moderate Active Flexeril Active Necon 0.5/35 Active Medications Albuterol (Eqv-ProAir HFA) 90 mcg/inh inhalation aerosol 2 puffs, Inhalation, Every 6 hours, # 6.7 Gm, 0 Refills, Maintenance, 10/03/21 11:59:00 AM EDT, [id number], Partial fill upon patient request if the prescription is for a schedule II opioiddrug., 2 puffs Inhalation Every 6 hours, 168, cm, 10/03/21 10:45:00 EDT, Height, 91, kg, 10/03/21 10:45:00 EDT, Dry Weight Start Date: 10/03/21 Status: Ordered Quantity: 6.7 Unit: g Repeat number: 1 albuterol 90 mcg/inh inhalation powder 1 puffs, Inhalation, Every 4 hours, PRN as needed, # 1 each, 0 Refills, Maintenance, 09/05/21 10:06:00 PM EDT, Powder, Partial fill upon patient request if the prescription is for a schedule II opioid drug. Start Date: 09/05/21 Status: Ordered Quantity: 1.0 Unit: each Repeat number: 1 atenolol 100 mg oral tablet TAKE 1 TABLET BY MOUTH ONCE DAILY Start Date: 02/05/24 Status: Ordered Repeat number: 1 baclofen 10 mg oral tablet 5 mg, 0.5, tablet, By Mouth, 3 times a day, # 21 tablet, Refills 1, Tot. Refills 1, Maintenance, 01/15/22 10:48:00 AM EDT, Route to Pharmacy Electronically, [id number], Partial fill upon patient request if the prescription is for a schedule II opioid drug., 163, cm, 01/15/22 10:09:00 EDT,Height, 91, kg, 01/04/22 1:12:00 EDT, Dry Weight Start Date: 01/15/22 Stop Date: 02/12/22 Status: Ordered Quantity: 21.0 Unit: tablet Repeat number: 2 busPIRone 5 mg oral tablet 5 mg, 1, tablet, By Mouth, 2 times a day, # 90 tablet, Refills 0, Maintenance, 09/05/21 10:03:00 PM EDT, Partial fill upon patient request if the prescription is for a schedule II opioid drug. Start Date: 09/05/21 Status: Ordered Quantity: 90.0 Unit: tablet Repeat number: 1 cetirizine 10 mg oral capsule 1 capsule = 10 mg, By Mouth, Daily, PRN for allergy symptoms, # 40 capsule, 0 Refills, Maintenance,09/05/21 10:01:00 PM EDT, Capsule, Partial fill upon patient request if the prescription is for a schedule II opioid drug. Start Date: 09/05/21 Status: Ordered Quantity: 40.0 Unit: capsule Repeat number: 1 Flonase 50 mcg/inh nasal spray 1 sprays, Nares, Both, 2 times a day, # 16 Gm, 0 Refills, Maintenance, 09/05/21 10:06:00 PM EDT, [place], Partial fill upon patient request if the prescription is for a schedule II opioid drug. Start Date: 09/05/21 Status: Ordered Quantity: 16.0 Unit: g Repeat number: 1 gabapentin 400 mg oral capsule TAKE 1 CAPSULE BY MOUTH AT BEDTIME Start Date: 02/05/24 Status: Ordered Repeat number: 1 hydrOXYzine hydrochloride 25 mg oral tablet 2 tablet = 50 mg, By Mouth, 3 times a day, PRN as needed for anxiety, 0 Refills, Maintenance, 05/18/20 3:36:00 PM EST, Partial fill upon patient request if the prescription is for a schedule II opioiddrug. Start Date: 05/18/20 Status: Ordered Repeat number: 1 KlonoPIN 0.5 mg oral tablet 1 tablet = 0.5 mg, By Mouth, 3 times a day, 0 Refills, Maintenance, 02/27/21 12:29:00 PM EDT, Partial fill upon patient request if the prescription is for a schedule II opioid drug. Start Date: 02/27/21 Status: Ordered Repeat number: 1 lamotrigine 200 mg oral tablet 1 tablet = 200 mg, By Mouth, Daily, # 60 tablet, 0 Refills, Maintenance, 09/05/21 10:04:00 PM EDT, Tablet, Partial fill upon patient request if the prescription is for a schedule II opioid drug. Start Date: 09/05/21 Status: Ordered Quantity: 60.0 Unit: tablet Repeat number: 1 levonorgestrel 19.5 mg intrauterine device 1 each = 19.5 mg, Once, 0 Refills, Maintenance, 09/05/21 10:06:00 PM EDT, Partial fill upon patient request if the prescription is for a schedule II opioid drug. Start Date: 09/05/21 Status: Ordered Repeat number: 1 magnesium oxide 400 mg oral tablet TAKE 1 TABLET BY MOUTH ONCE DAILY Start Date: 02/05/24 Status: Ordered Repeat number: 1 melatonin 10 mg oral tablet, extended release 1 tablet = 10 mg, By Mouth, Daily at bedtime, PRN as needed for sleep, # 60 tablet, 0 Refills, Maintenance, 06/22/20 6:15:00 PM EST, ER Tablet, Partial fill upon patient request if the prescription isfor a schedule II opioid drug. Start Date: 06/22/20 Status: Ordered Quantity: 60.0 Unit: tablet Repeat number: 1 methocarbamol 750 mg oral tablet 1 tablet = 750 mg, By Mouth, 3 times a day, # 42 tablet, 0 Refills, Maintenance, 09/05/21 10:04:00 PMEDT, Tablet, Partial fill upon patient request if the prescription is for a schedule II opioid drug. Start Date: 09/05/21 Stop Date: 09/12/21 Status: Ordered Quantity: 42.0 Unit: tablet Repeat number: 1 omeprazole 20 mg oral delayed release tablet 1 tablet = 20 mg, By Mouth, Daily, # 30 tablet, 0 Refills, Maintenance, 03/09/19 10:41:04 AM EST, CRTablet Start Date: 03/09/19 Status: Ordered Quantity: 30.0 Unit: tablet Repeat number: 1 prochlorperazine 5 mg oral tablet 1 tablet = 5 mg, By Mouth, 3 times a day, PRN for nausea/vomiting, # 30 tablet, 0 Refills, Maintenance, 02/07/24 4:49:00 PM EDT, Tablet, [id number], Partial fill upon patient request if theprescription is for a schedule II opioid drug., 163, cm, 02/05/24 14:43:00 EDT, Height, 88.8, kg, 02/05/24 14:43:00 EDT, Dry Weight Start Date: 02/07/24 Status: Ordered Quantity: 30.0 Unit: tablet Repeat number: 1 Qulipta 60 mg oral tablet TAKE 1 TABLET BY MOUTH ONCE DAILY Start Date: 02/05/24 Status: Ordered Repeat number: 1 rizatriptan 10 mg oral tablet, disintegrating 1 tablet = 10 mg, By Mouth, Daily, PRN as needed for migraine headache, may repeat dose every 2 hours up to a maximum of 30 mg in 24 hours, # 12 tablet, 0 Refills, Maintenance, 02/05/24 12:49:00 PM EDT, DIS Tablet, Partial fill upon patient request if the prescription is for a schedule II opioid drug. Start Date: 02/05/24 Status: Ordered Quantity: 12.0 Unit: tablet Repeat number: 1 venlafaxine 150 mg oral capsule, extended release TAKE 1 CAPSULE BY MOUTH ONCE DAILY IN THE MORNING Start Date: 02/05/24 Status: Ordered Repeat number: 1 VITAMIN B-2 100MG TAB VITAMIN B-2 100MG TAB, TAKE 4 TABLETS (400 MG TOTAL) BY MOUTH ONCE DAILY Start Date: 02/05/24 Status: Ordered Repeat number: 1 Zafemy 150 mcg-35 mcg/24 hr transdermal film, extended release 1 patch, Topically, 0 Refills, Maintenance, 09/05/21 10:05:00 PM EDT, Partial fill upon patient request if the prescription is for a schedule II opioid drug. Start Date: 09/05/21 Status: Ordered Repeat number: 1 Zofran 4 mg oral tablet 1 tablet = 4 mg, By Mouth, Every 8 hours, PRN as needed for nausea/vomiting, 0 Refills, Maintenance, 12/16/18 12:30:01 AM EDT, Tablet Start Date: 12/16/18 Status: Ordered Repeat number: 1 zolpidem 10 mg oral tablet TAKE 1 TABLET BY MOUTH AT BEDTIME Start Date: 02/05/24 Status: Ordered Repeat number: 1 Problem List Condition Confirmation Course Effective Dates Status Health St [facility] Informant COVID-19 1 Confirmed 07/28/22 Active Obese class I Confirmed Active 1Problem added by Discern Expert Social History Social History Type Response Smoking Status Never (less than 100 in lifetime) entered on: 01/26/19 Sex Female Sex Representation Female (finding) Patient Care team information Care Team Personnel Name: Alley Chávez Position: [facility] Outreach Member Role: Lifetime Consulting Physician Name: Lucho Panchal MD Position: [facility] Physician - Primary Care Member Role: PCP Address: [address] [place] [address] Corporate Law[place], [place] [address] Telecom: Care Team Related Persons Name: RELL BERMUDEZ Name: GIULIANA MORATAYA Insurance Providers Guarantor name: GABRIELLE JERRY Health Plan Information #: 3 Payer: [email or web address] Member Number: [id number] Policy Number: NA Group Number: NA Health Plan Information #: 2 Payer: MEDICARE PART B OUTPT Member Number: [id number] Policy Number: NA Group Number: NA Health Plan Information #: 1 Payer: [facility] [employer]/ONE CARE Member Number: [id number] Policy Number: NA Group Number: [id number]
--- OUTSIDE RECORDS SUMMARY | 2024-04-29 17:49 | XMS_ITS | Continuity of Care Document ---
Author Organization [facility], [place] - [facility] Address [address] [place] [phone] Care Team Providers Care Photography And Prints Curator Name Role Phone HIM CCA OTHER FRANKLIN ROMO Primary Care Provider Assessment Encounter Date Assessment Date Assessment LastModified by Organization Details LastModified Time 03/09/2024 03/09/2024 I provided real -time medical direction via phone for this encounter, and was available for additional phone based assistance as needed. I have reviewed and agree with the Assessment and Plan as documented by the Donor Specialist. The patient given the opportunity to ask questions. Advised if develops CP/severe SOB/turning blue/uncontrolle d n/v/d /AMS/ syncope/ hi fever unresponsive to APAP to call 911- she verbalized understanding of instructions to the medic [email or web address] Not available 03/09/2024 13:51:54 Plan of Treatment Reminders Order Date Submit Date Provider Last Modified By Organization Details Last Modified Time Details Appointments None recorded. Lab rapid SARS CoV 2 Ag, QL IA, respiratory specimen 2023 [email or web address] 0 [facility], [address] [place] [address], [phone], 13:49:39 rapid flu (A+B) 2023 [email or web address] 0 [facility], [address] [place] [address], [phone], 13:49:39 Referral None recorded. Procedures None recorded. Surgeries None recorded. Imaging None recorded. Medication Orders guaifenesin 400 mg tablet 2023 [facility], [address] [facility], [place], [address], 4 13:49:52 albuterol sulfate HFA 90 mcg/actuati on aerosol inhaler 2023 024 [facility], [address] [facility], [place], [address], 13:49:46 Patient TargetsNo targets recorded. Patient InstructionsNo instructions recorded. Reason for Referral None Reported. Results Created Date Observation Date Name Description Value Unit Range Abnormal Flag Note LastModifiedBy Organization Detail LastModifiedTime 03/09/20 24 03/09/2024 rapid flu (A+B) Flu negati ve Not Available [facility] ed [address] [place] [address], [phone], 03/09/2024 13:47:23 03/09/20 24 03/09/2024 rapid SARS CoV 2 Ag, QL IA, respi rator y speci men rapid SARS CoV 2 Ag, QL IA, respiratory specimen negati ve Not Available [facility] ed [address] [place] [address], [phone], 03/09/2024 13:47:22 Result Notes None recorded. Medical Equipment None Reported. Allergies Allergen ID Allergen Name Allergen Category Reaction Reaction Severity Criticality Documentation Date Start Date Code Code System Note Provider Name and Address Organization Details Recorded Time 4795 amitripty line medicatio n Not available Not available Not available 08/02/2023 704 RxNorm Not Available [facility] - production 4 09:39:11 4796 cyclobenz aprine hydrochlo ride medicatio n Not available Not available Not available 08/02/2023 22534 RxNorm Not Available [facility] - production 09:39:11 4797 sulindac medicatio n Not available Not available Not available 08/02/2023 89432 RxNorm has psych iatri c side effec ts Pushpa Loyd MD [address] [place] [address],[address], [place], [phone], [facility] - Near Page 4 11:05:36 4798 Necon (21) medicatio n Not available Not available Not available 08/02/2023 Pushpa Loyd MD [address] [facility],[address], [place], [phone], ASHLEY MILLY JACOB 11:05:05 Medications Name Sig Start Date Stop Date Status Note LastModified by Organization Details LastModified Time mucus [id number] g tab TAKE 1 TO 2 TABLETS [...] 1-2 tablets twice a day as needed 2023 active Not Available Not Available Not [...] Available No t Available Vitals Date Recorded Heart rate Respiratory rate Body temperature Oxygen saturation Oxygen saturation in Arterial blood by Pulse oximetry Systolic blood pressure Diastolic blood pressure Provider Name and Address Organization Details Last Updated DateTime 4 72 /min 16 /min 97.7 [degF] 100 % 100 % 138 mm[Hg] 89 mm[Hg] Not Available [facility] - production 4 13:20:29 Social History None recorded. Functional Status None recorded. Mental Status None recorded. Family History Nothing Reported. Medical History No medical history recorded. Gynecological HistoryNo gynecological history recorded. Obstetrics History GPAL:G 0 P 0 0 0 0 Past Encounters Encounter ID Performer Location Encounter Start Date Encounter Closed Date Diagnosis/Indication Diagnosis SNOMED-CT Code Diagnosis ICD10 Code [id number] Pushpa Loyd MD Main - [facility] [address] [place] [phone] 03/09/2024 13:20:26 03/09/2024 17:54:17 Viral upper respiratory tract infection 629056950 J06.9 Health Concerns Section Related Observation LastModified by Organization Detai ls LastModified Time None Recorded Concern Status LastModified by Organization Details LastModified Time None Recorded Payers Encounter Date Sequence Insurance Name Policy Number Policy Sood Covered Member ID Sood Member ID Guarantor Name 03/09/2024 1 [facility] - DOS ON OR AFTER 2022 - DUAL ELIGIBLE - SNF OPTIONS AND ONE CARE (MEDICARE REPLACEMENT/ADV ANTAGE - HMO) Antonia Hardin [id number] Antonia Hardin Notes Date Note Type Note Provider Name and Address Organization Details Recorded Time 03/09/2024 text/html CRC Nurse Triage Notes (Johanny Benitez): Reason For Request: SOB Chief Complaints: Breathing problems PMH: Severe Persistent Mental Illness (SPMI), Anxiety Disorder, Migraine Comments: Starch Treating Assistant verified the member's name//address and phone number. Member is a 38 yr old female She went to do a breathing treatment , but was unable to complete it as she has a missing piece to the [facility]. She feels that she is unwell. She feels she is getting bronchitis. She does not have a diagnosis of Asthma but is being treated as such. She has the breathing tightness, nasal congestionEducation provided on the response time and the member was advised to monitor reported s/s and seek emergency treatment if needed Donor Specialist Organization Information for Heladio Adriano Seaman JANNIE Business Legal Name: [facility] Address: [address] [place] [address], [place] [address], Senior Water Resources Engineer: Paras Wild MD [place] No.: [id number] Donor Specialist POC Test Results from Adriano Leija Rapid COVID antigen (12:44:24) COVID: - Rapid influenza antigen (12:44:25) Flu: - .................... .................... .................... .................... .................... .................... .................... . Donor Specialist Note From Adriano Leija: This 38-year-old female [...] extremity edema. Rapid COVID and flu negative. [facility] contacted and will send prescriptions to pharmacy. [...] and she is agreeable to this plan. .................... .................... .................... .................... .................... .................... .................... . [facility] Consulted: Pushpa Loyd .................... .................... .................... .................... .................... .................... .................... . Disposition: Fulfilled Pushpa Loyd MD [address] [facility],[address] [facility], [place], [address], ASHLEY - MILLY JACOB 03/09/2024 13:52:37 OBGyn Episode No OBEpisode recorded.
--- OUTSIDE RECORDS SUMMARY | 2024-04-29 17:49 | XMS_ITS | Continuity of Care Document ---
Author Organization [facility] Address [address] [place] [address]- Care Team Providers Care Membership Counselor Name Role Phone Lucho Panchal MD Primary Care Physician Encounter [facility] Date(s): 03/09/24 - 04/08/[address] [address] Attending Physician: Dino Morgan Admitting Physician: Dino Morgan Referring Physician: AdmtrDino Encounter Type: Triage Allergies, Adverse Reactions, Alerts Substance Criticality Severity Reaction Reaction Severity Status sulindac Unable to assess criticality Persistent Moderate Active Flexeril Active Necon 0.5/35 Active Medications Albuterol (Eqv-ProAir HFA) 90 mcg/inh inhalation aerosol 2 puffs, Inhalation, Every 6 hours, # 6.7 Gm, 0 Refills, Maintenance, 10/03/21 11:59:00 AM EDT, [facility], Partial fill upon patient request if the [...] 10:48:00 AM EDT, Route to Pharmacy Electronically, [facility], Partial fill upon patient request [...] 0 Refills, Maintenance, 09/05/21 10:06:00 PM EDT, [place], Partial fill upon patient request if the [...] Refills, Maintenance, 02/07/24 4:49:00 PM EDT, Tablet, [facility], Partial fill upon patient request [...] Care Team Personnel Name: Alley Chávez Position: [facility] Outreach Member Role: Lifetime Consulting Physician Name: Lucho Panchal MD Position: [facility] Physician - Primary Care Member Role: PCP Address: [address] [place] [address] [place], [place] [address] Telecom: Care Team Related Persons Name: RELL BERMUDEZ Name: GIULIANA MORATAYA Insurance Providers Guarantor name: GABRIELLE JERRY Health Plan Information #: 1 Payer: [facility] CARE ALLIANCE/ONE CARE Member Number: NA Policy Number: NA Group Number: NA Health Plan Information #: 2 Payer: MEDICARE PART B OUTPT Member Number: NA Policy Number: NA Group Number: NA Health Plan Information #: 3 Payer: [facility] Member Number: NA Policy Number: NA Group Number: NA
--- OUTSIDE RECORDS SUMMARY | 2024-04-29 17:49 | XMS_ITS | Continuity of Care Document ---
Author Organization [employer] [facility] [employer] [place] [facility] [employer] Address [address] [place] [address] Care Team Providers Care Production Zone Leader Name Role Phone HIM CCA OTHER FRANKLIN ROMO Primary Care Provider Assessment Encounter Date Assessment Date Assessment LastModified by Organization Details LastModified Time 03/21/2024 03/21/2024 I have reviewed and agree with the assessment and plan as documented by the instructional technology coach. I provided real time medical direction for this encounter and was immediately available to provide additional phone based assistance as needed. History as noted by instructional technology coach. Pt with history of asthma, reports the for the last several weeks she has had congestion and productive cough with white/yellow sputum. She has noted CAPONE but no SOB at rest or orthopnea. No CP or fevers. Pt seen by [facility] on 03/09 for similar symptoms. Covid [...] prn and [facility] if her symptoms do not improve after completing the meds. Pt instructed to seek medical attention right away with any worsening or new symptoms, which are reviewed with her. [email or web address] Not available 03/21/2024 09:16:29 Plan of Treatment Reminders Order Date Submit Date Provider Last Modified By Organization Details Last Modified Time Details Appointments None recorded. Lab None recorded. Referral None recorded. Procedures None recorded. Surgeries None recorded. Imaging None recorded. Medication Orders azithromyci n 250 mg tablet 2023 024 [facility], [address] [place] [address], [phone], 4 09:09:30 prednisone 20 mg tablet 2023 024 [facility], [address] [place] [address], [address], 4 09:09:31 azithromyci n 250 mg tablet 2023 024 [facility], [address] [place] [address], [id number], 4 09:09:22 prednisone 20 mg tablet 2023 024 [facility], [address] [place] [address], [address], 4 09:09:22 Patient TargetsNo targets recorded. Patient InstructionsNo instructions recorded. Reason for Referral None Reported. Medical Equipment None Reported. Allergies Allergen ID [...] Not available Not available Not available 08/02/2023 29097 RxNorm Not Available [facility] - production 4 09:39:11 4797 sulindac medicatio n Not available Not available Not available 08/02/2023 97484 RxNorm has psych iatri c side effec ts Pushpa Loyd MD [address] [facility],[address], [place], [address], [employer] 4 11:05:36 4798 Necon (21) medicatio n Not available Not available Not available 08/02/2023 Pushpa Loyd MD [address] [facility],[address], [place], [address], [facility] 4 11:05:05 Medications Name Sig Start Date Stop Date Status Note LastModified by Organization Details LastModified Time mucus [id number] g tab TAKE 1 TO 2 TABLETS [...] No t Available Vitals Date Recorded Body weight Body temperature Heart rate Respiratory rate Oxygen saturation Oxygen saturation in Arterial blood by Pulse oximetry Body height Systolic blood pressure Diastolic blood pressure Provider Name and Address Organization Details Last Updated DateTime 4 38462.4 8 g 97.7 [degF] 90 /min 16 /min 96 % 96 % 162.56 cm 124 mm[Hg] 80 mm[Hg] Not Available [facility] - production 09:02:57 Social History None recorded. Functional Status None recorded. Mental Status None recorded. Family History Nothing Reported. Medical History No medical history recorded. Gynecological HistoryNo gynecological history recorded. Obstetrics History GPAL:G 0 P 0 0 0 0 Past Encounters Encounter ID Performer Location Encounter Start Date Encounter Closed Date Diagnosis/Indication Diagnosis SNOMED-CT Code Diagnosis ICD10 Code [id number] Pushpa Loyd MD Main - [facility] [address] [place] [phone] 03/09/2024 13:20:26 03/09/2024 17:54:17 Viral upper respiratory tract infection 969456197 J06.9 [id number] Ruiz Shearer MD Main - [facility] [address] [place] [phone] 03/21/2024 09:02:54 03/21/2024 13:30:32 Acute bronchitis 22438055 J20.9 Health Concerns Section Related Observation LastModified by Organization Detai ls LastModified Time None Recorded Concern Status LastModified by Organization Details LastModified Time None Recorded Payers Encounter Date Sequence Insurance Name Policy Number Policy Sood Covered Member ID Sood Member ID Guarantor Name 03/21/2024 1 [facility] - DOS ON OR AFTER 2022 - DUAL ELIGIBLE - SKILLED NURSING OPTIONS AND ONE CARE (MEDICARE REPLACEMENT/ADV ANTAGE - HMO) Antonia Hardin [id number] Antonia Hardin Notes Date Note Type Note Provider Name and Address Organization Details Recorded Time 03/21/2024 text/html This was a supervised home visit with instructional technology coach Adriano Leija. CRC Nurse Triage Notes (Alok Hanley): Chief Complaints: Breathing problems, Cough, Common cold symptoms PMH: Severe Persistent Mental Illness (SPMI), Anxiety Disorder, Migraine Comments: Log Cut Off Sawyer verified the Pt.'s name//address and phone number. Education provided on the response time and the Pt. was advised to monitor reported s/s and seek emergency treatment if needed. Pt reports feeling unwell with a cough, cold and congestion - Increased use of Inhaler - Denies sore throat - Denies SOB - Denies fever - S/S for 3 days. ................... ................... ................... ................... ................... ................... ................... ........ Armoring Machine Operator Note From Adriano Leija: This 38-year-old female [...] questions and is agreeable to this plan. ................... ................... ................... ................... ................... ................... ................... ........ [facility] Consulted: Ruiz Shearer ................... ................... ................... ................... ................... ................... ................... ........ Disposition: Fulfilled Ruiz Shearer MD [address] [facility],[address], [place], [address], ASHLEY - [email or web address] 03/21/2024 09:32:30 OBGyn Episode No OBEpisode recorded.
--- OUTSIDE RECORDS SUMMARY | 2024-04-29 17:50 | XMS_ITS | Continuity of Care Document ---
Author Organization [facility] [place] [facility] Address [address] [place] [phone] Care Team Providers Care Manufacturer'S Service Representative Name Role Phone HIM CCA OTHER FRANKLIN ROMO Primary Care Provider Assessment No assessment recorded. Plan of Treatment Reminders Order Date Submit Date Provider Last Modified By Organization Details Last Modified Time Details Appointments None recorded. Lab None recorded. Referral None recorded. Procedures None recorded. Surgeries None recorded. Imaging None recorded. Medication Orders diphenhydra mine 50 mg/mL injection solution 2023 024 Not available 4 15:48:46 ketorolac 60 mg/2 mL intramuscul ar cartridge 2023 024 Not available 4 15:48:46 metoclopram rishabh 5 mg/mL injection solution 2023 024 [email or web address] Not available 4 15:48:46 Patient TargetsNo targets recorded. Patient InstructionsNo instructions [...] Not available Not available Not available 08/02/2023 72797 RxNorm Not Available [facility] - production 4 09:39:11 4797 sulindac medicatio n Not available Not available Not available 08/02/2023 25933 RxNorm has psych iatri c side effec ts Pushpa Loyd MD [address] [facility],[address], [place], [address], [employer] 4 11:05:36 4798 Rachel (21) medicatio n Not available Not available Not available 08/02/2023 Pushpa Loyd MD [address] [facility],[address], [place], [address], [employer] 4 11:05:05 Medications Name Sig Start Date Stop Date Status Note LastModified by Organization Details LastModified Time pain relievr tab 500mg active Not Available Not Available No t Available mucus [id number] g tab TAKE 1 TO 2 TABLETS [...] Available No t Available Vitals Date Recorded Respiratory rate Heart rate Oxygen saturation Oxygen saturation in Arterial blood by Pulse oximetry Body temperature Systolic blood pressure Diastolic blood pressure Provider Name and Address Organization Details Last Updated DateTime 4 16 /min 94 /min 98 % 98 % 98.2 [degF] 135 mm[Hg] 85 mm[Hg] Not Available [facility] - production 4 15:34:16 Social History None recorded. Functional Status None recorded. Mental Status None recorded. Family History Nothing Reported. Medical History No medical history recorded. Gynecological HistoryNo gynecological history recorded. Obstetrics History GPAL:G 0 P 0 0 0 0 Past Encounters Encounter ID Performer Location Encounter Start Date Encounter Closed Date Diagnosis/Indication Diagnosis SNOMED-CT Code Diagnosis ICD10 Code [id number] Eda Hernandez MD Main - [facility] [address] [place] [phone] 01/23/2024 20:03:32 01/23/2024 21:11:54 Headache 75956177 R51.9 [id number] Pushpa Loyd MD Main - [facility] [address] [place] [phone] 02/04/2024 15:34:12 02/04/2024 21:57:18 Migraine 53487809 G43.909 Abdominal pain 08801376 R10.9 Health Concerns Section Related Observation LastModified by Organization Detai ls LastModified Time None Recorded Concern Status LastModified by Organization Details LastModified Time None Recorded Payers Encounter Date Sequence Insurance Name Policy Number Policy Sood Covered Member ID Sood Member ID Guarantor Name 02/04/2024 1 [facility] - DOS ON OR AFTER 2022 - DUAL ELIGIBLE - LONG-TERM OPTIONS AND ONE CARE (MEDICARE REPLACEMENT/ADV ANTAGE - HMO) Antonia Hardin [id number] Antonia Hardin Notes Date Note Type Note Provider Name and Address Organization Details Recorded Time 02/04/2024 text/html HPI: Migraine attack?? ....................... ....................... ....................... ....................... ....................... ....................... ... CRC Nurse Triage Notes (Johanny Benitez): Reason For Request: Pain Chief Complaints: Headache PMH: Severe Persistent Mental Illness (SPMI) Allergies: Unknown Comments: Product Consultant verified the member's name//address and phone number. [...] s/s and seek emergency treatment if needed Data Entry Processor Summary-note closed prior to medic summary crossing over into [place] so I am entering it here- SEGMD:Summary- Spencer VALDERRAMA Brenda to evaluate 38-year-old female with migraine symptoms. [...] flareups. Vital signs and physical exam unremarkable [facility] Dr. Graves was contacted, and ordered IM Benadryl, Reglan, and Toradol. 5 rights were confirmed. 10mg IM Reglan, 30mg IM Toradol and 50mg IM Benadryl was administered as directed. Patient was advised to follow up with her PCP and seek evaluation at the ER if symptoms do not improve or worsen.Services ProvidedMedication (IM)DispositionFulfille [facility] patient sent [facility]?No Pushpa Loyd MD [address] [place] [address],[address], [place], [address], [facility] [employer] 02/05/2024 11:28:43 OBGyn Episode No OBEpisode recorded.
--- NOTE | 2024-04-29 17:56 | PC.NURSE ---
labs drawn per order
[2024-04-29 18:00] LABS: Prothrombin Time 11.1 SEC (10.9-12.4)
[2024-04-29 18:03] LABS: Alanine Aminotransferase 11 U/L (0-31); Albumin Level 4.3 g/dL (3.5-5.0); Anion Gap 14 (12-20); Aspartate Amino Transferase 16 U/L (5-31); Bilirubin Total 0.4 mg/dL (0.0-1.0); Blood Urea Nitrogen 12 mg/dL (9-16); Calcium 9.4 mg/dL (8.4-10.2); Carbon Dioxide 24 mmol/L (22-29); Chloride 107 mmol/L (96-108); Creatinine Clr Calc Pharmacy 105.6; Estimated Glomerular Filt Rate > 60; Glucose Random 118 mg/dL (60-115); HCG Quantitative 4 mIU/mL; Lipase 12 U/L (8-78); Partial Thromboplastin Time 28.5 SEC (26.0-36.8); Potassium 3.7 mmol/L (3.3-5.1); Sodium 141 mmol/L (135-145); Total Protein 7.3 g/dL (6.5-8.0)
[2024-04-29 18:07] LABS: Basophils Percent Auto 0.3 % (0-2); Eosinophils Absolute Auto 0.1 X10*3/uL (0.0-0.4); Eosinophils Percent Auto 1.2 % (0-4); Hematocrit 42.8 % (37.0-47.0); Hemoglobin 14.4 g/dl (12.0-16.0); Imm Gran Abs Auto 0.02 X10*3/uL (0.00-0.03); Imm Gran Pct Auto 0.2 % (0.0-0.4); Lymphocytes Absolute Auto 2.7 X10*3/uL (1.2-4.9); Lymphocytes Percent Auto 29.2 % (20-40); Mean Corpuscular HGB Conc 33.6 g/dl (31.0-35.0); Mean Corpuscular Hemoglobin 29.6 pg (27.0-33.0); Mean Corpuscular Volume 88.1 fL (80.0-98.0); Mean Platelet Volume 10.3 fL (9.4-12.3); Monocytes Absolute Auto 0.6 X10*3/uL (0.1-1.2); Monocytes Percent Auto 6.4 % (2-11); Neutrophils Absolute Auto 5.7 x10*3/uL (2.0-8.3); Neutrophils Percent Auto 62.7 % (45-73); Platelet Count 287 X10*3/uL (160-400); Red Blood Count 4.86 X10*6/uL (4.20-5.50); Red Cell Distribution Width 13.4 % (11.0-16.0); White Blood Count 9.2 X10*3/uL (4.8-10.8)
[2024-04-29] MEDS: Ondansetron ODT 4 MG TAB.RAPDIS TRANSLINGU (18:24)
[2024-04-29 18:26] LABS: Alkaline Phosphatase 64 U/L (39-117)
[2024-04-29 18:27] VITALS: BP 144/91; PULSE 89; RESP 22; TEMP 36.7; O2SAT 98
== END 2024-04-29 18:30 | disposition home or self-care (01) ==
PROVIDERS: Physician Assistant; Emergency Provider Emergency Medicine; PCP Pediatrics
DX: R10.2 Pelvic and perineal pain (principal); R11.2 Nausea with vomiting, unspecified; Z79.899 Other long term (current) drug therapy
CPT/HCPCS: 36415; 80053; 81003; 81025; 83690; 83735; 84702; 85025; 85610; 85730; 99282; 99283